=== PATIENT | female | born 1995 | race Caucasian/White ===

== ENCOUNTER → 2022-08-23 10:16 | Outpatient (CLI) | payer OTHER, SELFPAY ==
[2022-08-23 11:30] LABS: Add Manual Diff / Slide Review NO; Basophils Absolute Auto 0 /uL (0-100); Basophils Percent Auto 0.2 % (0-2); Eosinophils Absolute Auto 200 /uL (0-450); Eosinophils Percent Auto 1.9 % (2-4); Hematocrit 39.3 % (36-46); Hemoglobin 13.4 g/dL (12.0-16.0); Lymphocytes Absolute Auto 2000 /uL (1100-4500); Lymphocytes Percent Auto 23.1 % (25-40); Mean Corpuscular HGB Conc 34.1 % (30-36); Mean Corpuscular Hemoglobin 29.5 PG (26-34); Mean Corpuscular Volume 86.5 fL (80-100); Monocytes Absolute Auto 500 /uL (0-900); Monocytes Percent Auto 6.2 % (3-14); Neutrophils Absolute Auto 6100 /uL (1500-7000); Neutrophils Percent Auto 68.6 % (50-75); Platelet Count 224 X10^3/uL (150-400); Red Blood Cell Count 4.55 X10^6/uL (4.0-5.2); Red Cell Distribution Width 12.8 % (11.6-14.8); White Blood Cell Count 8.9 X10^3/uL (4.5-11.0)
[2022-08-23 13:17] LABS: Appearance Urine UA SL CLOUDY; Bilirubin Urine UA NEGATIVE (NEGATIVE); Color Urine UA YELLOW; Glucose Urine UA NEGATIVE (Negative); Ketones Urine UA NEGATIVE (NEGATIVE); Leukocyte Esterase Urine UA 1+ (NEGATIVE); Nitrite Urine UA NEGATIVE (Negative); Occult Blood Urine UA NEGATIVE (Negative); Protein Urine UA NEGATIVE (Negative); Specific Gravity Urine UA 1.015 (1.000-1.035); Urobilinogen Urine UA 0.2 E.U./dL (0.2)
[2022-08-23 13:20] LABS: pH Urine UA 7.5 (4.5-8.0)
[2022-08-23 13:37] LABS: RBC Urine None Seen (0-5/HPF); Squamous Epithelial Cell Urine 5-10 /HPF (0-5/HPF); WBC Urine 1-5/HPF (0-5/HPF)
[2022-08-23 13:38] LABS: Bacteria Urine None Seen; Culture Indicated Urine Cult Not Indicated
[2022-08-24 08:20] LABS: RPR Screen Non Reactive (Non Reactive); Varicella IgG Antibody 1400 index (Immune >165)
[2022-08-24 15:52] LABS: Hepatitis B Surface Antigen NEGATIVE s/c (NEGATIVE); Rubella Antibody IgG 30.8 IU/mL (>15)
[2022-08-24 16:13] LABS: HIV 1 & 2 Ab/Ag 4th Gen Combo NEGATIVE (NEGATIVE); Hep C Virus Ab w/Reflex Quant NEGATIVE s/c (NEGATIVE)
== END ==
PROVIDERS: Referring Provider Family Medicine; Visit Provider Family Medicine
DX: Z34.81 Encounter for supervision of other normal pregnancy, first trimester (principal)
CPT/HCPCS: 36415; 80055; 81003; 81015; 86787; 86803; 86850; 86900; 86901; 87086; 87389

== ENCOUNTER → 2022-10-02 09:08 | Outpatient (CLI) | payer OTHER, SELFPAY ==
[2022-10-02 11:25] LABS: GTT (PREG) 1 Hour PP 50gm Dose 130 mg/dL (76-139)
== END ==
PROVIDERS: Referring Provider Family Medicine; Visit Provider Family Medicine
DX: Z34.82 Encounter for supervision of other normal pregnancy, second trimester (principal); Z3A.17 17 weeks gestation of pregnancy
CPT/HCPCS: 36415; 82950

== ENCOUNTER → 2022-10-20 10:15 | Outpatient (CLI) | payer OTHER, SELFPAY ==
--- NOTE | 2022-10-20 10:16 | DI.US.S_ITS ---
PROCEDURE: US OB >= 14 WEEKS FETUS INDICATIONS: anatomy screening OUTSIDE/PRIOR DATING DATA: Last menstrual period (LMP): 05/31/2022. LMP-based estimated date of delivery (JOSE): 03/07/2023. First dating scan (date and location): Today's exam. Estimated date of delivery (JOSE) from first dating scan: 03/04/2023. The calculations are made using the clinical JOSE of 03/07/2023. TECHNIQUE: Real-time scanning was performed of the fetus, with image documentation and biometric measurements. Endovaginal scanning: Not performed COMPARISON: None. FINDINGS: General: A single living intrauterine gestation is present. Presentation: Transverse. Placenta: Placental position is posterior , without previa. Amniotic fluid index: 13.9 cm, normal range is 5-24 cm. Single deepest vertical pocket is 4.0 cm. heart rate: 147 beats per minute. Maternal cervical canal: 4.6 cm long. Normal lower limit is 2.5 cm. biometrics: Biparietal diameter: 4.7 cm, 20 weeks 2 days Head circumference: 17.7 cm, 20 weeks 1 day Abdominal circumference: 15.7 cm, 20 weeks 6 days Femur length: 3.6 cm, 21 weeks 2 days Clinically estimated gestational age: 20 weeks 2 days Composite gestational age from present scan: 20 weeks 5 days Estimated weight and percentile: 389 g, 81st percentile Anatomic survey: Neuro: Ventricles are non-dilated at less than 10 mm. Cisterna magna is normal at 3-11 mm. Cerebellum is normal in size and morphology. Nuchal skin fold: Normal at less than 6 mm between 14-21 weeks gestational age. Face: Nose and lips, facial profile are normal. Spine: No evidence for spina bifida. Heart: 4-chambered heart is present, with normal ventricular outflow tracts. Diaphragm: Diaphragm is intact. Stomach: Left-sided stomach is present. Kidneys: No hydronephrosis. Normal is less than 5 mm in 2nd trimester, less than 7 mm in 3rd trimester. Cord: 3-vessel cord has orthotopic insertion. Bladder: Normal in size. Extremities: All 4 extremities identified. IMPRESSION: Single living intrauterine at 20 weeks 2 days, JOSE of 03/07/2023. Normal anatomy survey. Estimated weight of 389 g, 81st percentile. We strive to produce accurate, complete, and clear reports of imaging services. To assist us in improving patient care, this report was composed using standard report templates and voice recognition software. Therefore, it may contain abnormal punctuation, insertions and/or omissions. Occasional wrong-word or sound-alike substitutions may occur. Though we review the report and make efforts to correct it, we do recommend that the report be read carefully in proper context to recognize any text inaccuracies. Dictated by: Kishor Duran M.D. on 10/20/2022 at 13:27 Approved by: Kishor Duran M.D. on 10/20/2022 at 13:30
== END ==
PROVIDERS: Referring Provider Family Medicine; Visit Provider Family Medicine
DX: Z34.92 Encounter for supervision of normal pregnancy, unspecified, second trimester (principal); Z3A.20 20 weeks gestation of pregnancy
CPT/HCPCS: 76811

== ENCOUNTER → 2022-12-08 12:28 | Outpatient (CLI) | payer OTHER, SELFPAY ==
[2022-12-08 13:58] LABS: Add Manual Diff / Slide Review NO; Basophils Absolute Auto 100 /uL (0-100); Basophils Percent Auto 0.8 % (0-2); Eosinophils Absolute Auto 300 /uL (0-450); Eosinophils Percent Auto 2.6 % (2-4); Hematocrit 37.9 % (36-46); Hemoglobin 12.9 g/dL (12.0-16.0); Lymphocytes Absolute Auto 2200 /uL (1100-4500); Lymphocytes Percent Auto 17.3 % (25-40); Mean Corpuscular Hemoglobin 29.8 PG (26-34); Mean Corpuscular Volume 87.6 fL (80-100); Monocytes Absolute Auto 700 /uL (0-900); Monocytes Percent Auto 5.1 % (3-14); Neutrophils Absolute Auto 9500 /uL (1500-7000); Neutrophils Percent Auto 74.2 % (50-75); Platelet Count 216 X10^3/uL (150-400); Red Blood Cell Count 4.33 X10^6/uL (4.0-5.2); Red Cell Distribution Width 13.2 % (11.6-14.8); White Blood Cell Count 12.8 X10^3/uL (4.5-11.0)
[2022-12-08 14:46] LABS: Alanine Aminotransferase 19 IU/L (<35); Albumin 3.6 g/dL (3.5-5.0); Albumin Globulin Ratio 1.1 (1.0-2.8); Alkaline Phosphatase 75 U/L (38-126); Aspartate Aminotransferase 29 IU/L (14-36); BUN Creatinine Ratio 17.9 (6-22); Bilirubin Total 0.3 mg/dL (0.2-1.3); Blood Urea Nitrogen 7 mg/dL (7-17); Calcium 9.3 mg/dL (8.4-10.2); Carbon Dioxide 23 mmol/L (22-32); Chloride 103 mmol/L (98-107); Estimated Glomerular Filt Rate > 60 mL/min (>60); GTT (PREG) 1 Hour PP 50gm Dose 134 mg/dL (76-139); Globulin 3.3 g/dL (1.7-4.1); Glucose 134 mg/dL (70-100); HEMOLYSIS 67 (0-50); Potassium 3.7 mmol/L (3.4-5.1); Sodium 135 mmol/L (137-145); Total Protein 6.9 g/dL (6.3-8.2)
[2022-12-08 17:16] LABS: Creatinine Urine Random 41.9 mg/dL; Protein (Total) Urine Random 14 mg/dL (0-12); Protein Creatinine Ratio Urine 0.33 GRAM/24H
== END ==
PROVIDERS: Referring Provider Family Medicine; Visit Provider Family Medicine
DX: Z34.82 Encounter for supervision of other normal pregnancy, second trimester (principal); Z3A.26 26 weeks gestation of pregnancy
CPT/HCPCS: 36415; 80053; 82570; 82950; 84156; 85025

== ENCOUNTER → 2022-12-12 15:17 | Outpatient (CLI) | payer OTHER, SELFPAY | PROVIDERS: Referring Provider Family Medicine; Visit Provider Family Medicine | DX: Z34.81 Encounter for supervision of other normal pregnancy, first trimester (principal) | CPT/HCPCS: 36415; 86850 ==

== ENCOUNTER → 2022-12-14 12:56 | Outpatient (CLI) | payer OTHER, SELFPAY ==
[2022-12-14 16:44] LABS: Collection Time Urine 24 Hours; Protein (Total) Urine Random 12 mg/dL (0-12); Total Protein 24 Hour Urine 138 mg/day (42-225); Total Volume Urine 1150 mL
== END ==
PROVIDERS: Referring Provider Family Medicine; Visit Provider Family Medicine
DX: Z34.90 Encounter for supervision of normal pregnancy, unspecified, unspecified trimester (principal); R80.9 Proteinuria, unspecified
CPT/HCPCS: 84156

== ENCOUNTER → 2023-02-06 10:38 | Outpatient (CLI) | payer OTHER, SELFPAY ==
[2023-02-07 14:32] LABS: Strep Grp B PCR NEG for Grp B Strep
== END ==
PROVIDERS: Visit Provider Family Medicine
DX: Z34.81 Encounter for supervision of other normal pregnancy, first trimester (principal)
CPT/HCPCS: 87653

== ENCOUNTER 2023-03-05 20:30 | Observation (INO) | payer OTHER, SELFPAY ==
[2023-03-05 22:10] LABS: Add Manual Diff / Slide Review NO; Basophils Absolute Auto 100 /uL (0-100); Basophils Percent Auto 0.6 % (0-2); Eosinophils Absolute Auto 300 /uL (0-450); Eosinophils Percent Auto 2.4 % (2-4); Hematocrit 33.9 % (36-46); Hemoglobin 11.8 g/dL (12.0-16.0); Lymphocytes Absolute Auto 2400 /uL (1100-4500); Lymphocytes Percent Auto 23.5 % (25-40); Mean Corpuscular HGB Conc 34.8 % (30-36); Mean Corpuscular Hemoglobin 29.2 PG (26-34); Monocytes Absolute Auto 700 /uL (0-900); Monocytes Percent Auto 6.9 % (3-14); Neutrophils Absolute Auto 6800 /uL (1500-7000); Neutrophils Percent Auto 66.6 % (50-75); Platelet Count 225 X10^3/uL (150-400); Red Blood Cell Count 4.04 X10^6/uL (4.0-5.2); White Blood Cell Count 10.2 X10^3/uL (4.5-11.0)
[2023-03-05] MEDS: hydrOXYzine 50 MG/ML INJ IM (22:14)
[2023-03-05] MEDS: MORPHINE 10 MG/ML INJ IM (22:14)
[2023-03-05 22:54] LABS: Creatinine Urine Random 42.6 mg/dL; Protein (Total) Urine Random 19 mg/dL (0-12); Protein Creatinine Ratio Urine 0.44 GRAM/24H
== END 2023-03-05 22:10 | disposition home or self-care (01) ==
PROVIDERS: Admitting Provider Family Medicine; Referring Provider Family Medicine; Visit Provider Family Medicine
DX: O47.1 False labor at or after 37 completed weeks of gestation (principal); Z3A.39 39 weeks gestation of pregnancy
CPT/HCPCS: 82570; 84156; 85025; G0378; G0379; J2270; J3410

== ENCOUNTER 2023-03-07 07:28 | Inpatient (IN) | payer OTHER, SELFPAY ==
[2023-03-07] MEDS: LACTATED RINGERS 1,000 ML 100 ML IV (08:30)
[2023-03-07 08:50] LABS: Add Manual Diff / Slide Review NO; Basophils Absolute Auto 0 /uL (0-100); Basophils Percent Auto 0.2 % (0-2); Eosinophils Absolute Auto 200 /uL (0-450); Eosinophils Percent Auto 1.8 % (2-4); Hematocrit 35.3 % (36-46); Hemoglobin 12.3 g/dL (12.0-16.0); Lymphocytes Absolute Auto 1600 /uL (1100-4500); Lymphocytes Percent Auto 16.8 % (25-40); Mean Corpuscular HGB Conc 34.8 % (30-36); Mean Corpuscular Hemoglobin 29.5 PG (26-34); Mean Corpuscular Volume 84.7 fL (80-100); Monocytes Absolute Auto 500 /uL (0-900); Monocytes Percent Auto 5.1 % (3-14); Neutrophils Absolute Auto 7200 /uL (1500-7000); Neutrophils Percent Auto 76.1 % (50-75); Platelet Count 217 X10^3/uL (150-400); Red Blood Cell Count 4.16 X10^6/uL (4.0-5.2); Red Cell Distribution Width 13.2 % (11.6-14.8); White Blood Cell Count 9.5 X10^3/uL (4.5-11.0)
[2023-03-07] MEDS: OXYTOCIN PREMIX 30 UNIT/500 ML PLAST..BAG IV (09:03)
[2023-03-07 09:12] LABS: Alanine Aminotransferase 15 IU/L (<35); Albumin 3.4 g/dL (3.5-5.0); Alkaline Phosphatase 123 U/L (38-126); Aspartate Aminotransferase 19 IU/L (14-36); Bilirubin Total 0.2 mg/dL (0.2-1.3); Blood Urea Nitrogen 8 mg/dL (7-17); Calcium 9.1 mg/dL (8.4-10.2); Carbon Dioxide 21 mmol/L (22-32); Chloride 105 mmol/L (98-107); Estimated Glomerular Filt Rate > 60 mL/min (>60); Globulin 3.3 g/dL (1.7-4.1); Glucose 112 mg/dL (70-100); HEMOLYSIS < 15 (0-50); Potassium 3.5 mmol/L (3.4-5.1); Sodium 135 mmol/L (137-145); Total Protein 6.7 g/dL (6.3-8.2)
--- NOTE | 2023-03-07 09:49 | PM.OBHP.IH.1 ---
OB HPI Date/Time Date of admission: 03/07/23 Date Patient Seen: 03/07/23 Time Patient Seen: 08:30 History of Present Condition Chief complaint: INDUCTION JOSE Calculator Estimated Delivery Date Method Current WG Current Estimate 03/07/23 LMP (Certain) 40w 0d Other Estimates 03/09/23 Ultrasound #1 39w 5d Estimated Gestational Age (weeks): 40w0d : 2 Para: 1 Narrative: Pt is a 27yo at 40w0d here for IOL for pre-eclampsia without severe symptoms. The pt denies any current headache, vision changes, RUQ pain, acutely worsening swelling. She denies any contractions. She has had minimal spotting. No LOF. She is feeling her baby move regularly. The pts was uncomplicated, until she was noted to have elevated BPs in triage 2 days prior to induction. Labs revealed elevated protein/creatinine ratio, for the diagnosis of pre-eclampsia. She has remained asymptomatic. The pt did have a hx of gestational hypertension, but declined aspirin. care: good care, initiated at week # and pounds weight gain Dating criteria OB: LMP confirmed by 1st trimester US Ultrasounds: normal 1st trimester US and normal mid trimester US Obstetrical complications: preeclampsia Medical complications OB: none Indications Indication for induction OB: gestational HTN/pre-eclampsia Preadmission Labs Last OB Lab Results: Blood Type A Negative 03/07/23 08:40 Antibody Screen Negative 03/07/23 08:40 Hematocrit 35.3 % (36-46) L 03/07/23 08:40 Hemoglobin 12.3 g/dL (12.0-16.0) 03/07/23 08:40 Hepatitis B Surface Antigen Negative s/c (NEGATIVE) 08/23/22 10:30 Hepatitis C Antibody Negative s/c (NEGATIVE) 08/23/22 10:30 Rubella Antibody 30.8 IU/mL (>15) 08/23/22 10:30 Varicella-Zoster IgG Antibody 1400 index (Immune >165) 08/23/22 10:30 Glucose 1 Hour 134 mg/dL (76-139) 12/08/22 13:52 Group B Streptococcus (PCR) Neg for grp b strep 02/06/23 10:38 -: Chlamydia screen: negative, Gonorrhea screen: negative and Urine: negative External Labs -: Urine: negative Prior (ies) Past Pregnancies Del. Date GA/Weeks Labor Lgth Wt Sex Route Outcome Anesthesia Place Delv Breastfeed Preg Comp Name 05/16/19 39 12 7 lb 13 oz Male vaginal vacuum live - full term [facility] attempted induced hyper- gestational diabetes [place] Evaluation Evaluation Baseline heart rate: 150 Variability: Moderate (11-25) monitor accelerations: Present Monitor Decelerations: Absent Status: Category l Dilation (cm): 4 Effacement (%): 80 Dilation: 3-4 cm Effacement: >/=80% station: -1 Position of cervix: mid Consistency: soft Aleman score: 10 [facility] Medical History (Updated 07/13/22 @ 10:30 by Nicole Jaimes RN) Gestational diabetes Gestational hypertension Surgical History (Updated 07/13/22 @ 10:30 by Nicole Jaimes RN) [place] teeth extracted Family History (Updated 08/11/22 @ 14:40 by Corina Portillo MD) Grandfather Pancreatic cancer Diabetes mellitus Mother History of hysterectomy Endometrial cancer Social History marital status: unmarried,single number of children: 1 household members: children lives independently: Yes caregiver/support person: Yes housing: [facility] pets and animals: No education level: high school occupational status: employed current occupational exposures/hazards: Yes (counseled ) special reece needs: No travel history: over 6 months ago seatbelt use: always helmet use: Yes water heater temp set < 120 deg: Yes working smoke detector in home: Yes fire extinguisher in home: Yes carbon monox detector in home: Yes firearms in home: Yes do you feel safe at home: Yes Smoking Status: Never smoker second hand exposure: No alcohol intake: former substance use type: does not use during the past year weight has: remained stable well-balanced diet: about half the time daily servings fruits/ve-4 caffeine: Yes (2 shots/day espresso) Type(s) of exercise: walking, bicycling and resistance training frequency: daily duration: 30-45 minutes/day Meds Home Medications and Allergies Home Medications Medication Instructions Recorded Confirmed Type prenat.vits,mayra,dth-sitf-fxfqr 1 tab PO DAILY 07/13/22 03/06/23 History Allergies Allergy/AdvReac Type Severity Reaction Status Date / Time No Known Drug Allergies Allergy Unverified 03/06/23 09:19 OB Exam Resp Effort & Inspection: normal respiratory effort Auscultation: clear to auscultation bilaterally Cardio Rate: regular rate Rhythm: regular rhythm Heart Sounds: S1 normal, S2 normal and no murmurs GI Inspection: non-distended Palpation: Yes soft and No tender Presentation: vertex Other: no clonus Objective Labs 03/07/23 08:40 03/07/23 08:40 Labs: Laboratory Results - last 24 hr 03/07/23 08:40 WBC 9.5 RBC 4.16 Hgb 12.3 Hct 35.3 L MCV 84.7 MCH 29.5 MCHC 34.8 RDW 13.2 Plt Count 217 Neut % (Auto) 76.1 H Lymph % (Auto) 16.8 L [place] % (Auto) 5.1 Eos % (Auto) 1.8 L Baso % (Auto) 0.2 Neut # (Auto) 7200 H Lymph # (Auto) 1600 [place] # (Auto) 500 Eos # (Auto) 200 Baso # (Auto) 0 Sodium 135 L Potassium 3.5 Chloride 105 Carbon Dioxide 21 L BUN 8 Creatinine 0.47 L Estimated GFR > 60 BUN/Creatinine Ratio 17.0 Glucose 112 H Calcium 9.1 Total Bilirubin 0.2 AST 19 ALT 15 Alkaline Phosphatase 123 Total Protein 6.7 Albumin 3.4 L Globulin 3.3 Albumin/Globulin Ratio 1.0 Assessment and Plan Assessment and Plan Assessment and Plan narrative: 27yo at 40w0d here for IOL due to preeclampsia without severe features. No evidence of HELLP on labs. GBS negative, Rh negative. Aleman score currently 10. After informed consent, AROM performed with scant clear fluid produced. - Start pitocin, titrate as tolerated - FHT reassuring - GBS negative, no prophylaxis indicated - Epidural when desired - Monitor BPs closely
[2023-03-07 10:33] VITALS: BP 128/62
[2023-03-07] MEDS: FENT 2MCG/ML BUPIV 0.1% EPI 200 MCG/100 ML PLAST..BAG 6 MCG EPIDURAL (12:15)
--- NOTE | 2023-03-07 14:39 | P.PCNOB_ITS ---
Events: Pre-Eclampsia Labor & Delivery Delivery date: 03/07/23 Cervical ripening method: none Induction method: AROM Delivery augmentation: pitocin Delivery monitor: external FHT and external uterine Route of delivery: Episiotomy description: None L&D Laceration Description: Perineal - 2nd Degree Quantitative Blood Loss: 200 Anesthesia Type: Epidural Complications: None Narrative: PROCEDURE: at 40w0d presented for IOL for pre-eclampsia and was admitted to Labor and Delivery. The patient progressed through the 1st stage over 2 hours. ROM occured at 8:43 with clear fluid. Pain was controlled with an epidural. The patient progressed through the 2nd stage over 1 hour and delivered a viable male infant with APGARs 8/9 at 13:50 via without complications. Nuchal cord x1 was reduced at the perineum. The cord was cut and clamped after it stopped pulsating. The placenta delivered with gentle cord traction, and appeared complete. The perineum and vagina were inspected with 2nd degree perineal laceration repaired with 3-O Chromic. Needle and sponge counts were correct.? The vagina was inspected and no items were left in situ. Alicja was doing well with Sonido, her and Eduardo, her , at bedside. PREPROCEDURE DIAGNOSIS: Intrauterine at 40w0d Pre-eclampsia without severe features GBS negative RH negative POSTPROCEDURE DIAGNOSIS: Intrauterine at 40w0d, delivered Same as preprocedure [place] Baby 1: gender: Male Presentation: vertex Position: Left Occiput Anterior Placenta delivery description: Spontaneous Cord Vessel Description: 3 Vessels and Nuchal Cord score (1 min): 8 score (5 min): 9 weight: 7 lb 1.512 oz Plan for aftercare: Routine care
[2023-03-07 14:46] VITALS: BP 116/71; PULSE 85; RESP 16; TEMP 37.2
[2023-03-07] MEDS: ACETAMINOPHEN 325 MG TABLET 650 MG PO ×2 (16:06→21:59)
[2023-03-07] MEDS: IBUPROFEN 600 MG TABLET PO ×2 (16:06→21:59)
--- NOTE | 2023-03-07 16:23 | PM.ANES.PR ---
Operative Date/Time/Diagnoses Date of procedure: 03/07/23 Time of procedure: 12:10 Pre-op diagnosis: labor pain Post-op diagnosis: same Note patient is a requesting labor epidural
--- NOTE | 2023-03-07 16:24 | PM.AN.REGBLK ---
Regional Block Pre-procedure Procedure: Continuous Lumbar Epidural for L&D Attending OB provider: Evan Melendrez PMH/ROS narrative: patient is a requesting labor epidural Hx: No personal or family history of anesthesia problems. Exam narrative: Mallampati:2, good neck ROM, T.M. > 3 cm ASA Class: II Labs: Hct 35.3 % (36-46) L 03/07/23 08:40 Plt Count 217 X10^3/uL (150-400) 03/07/23 08:40 Medications: Current Medications Generic Name Dose Route Start Last Admin Trade Name Freq PRN Reason Stop Dose Admin Acetaminophen 650 mg 03/07/23 14:46 03/07/23 16:06 Acetaminophen 325 Mg Tablet PO 650 mg Q6HR PRN Administration Pain, Mild (1-3) Benzocaine 1 spray 03/07/23 14:46 Dermoplast [place] 20% 60 Ml TOP Q1HR PRN perineal pain Carboprost Tromethamine 250 mcg 03/07/23 14:46 Carboprost 250 Mcg/Ml Ampul IM Q90MIN PRN Bleeding Diphenhydramine HCl 25 mg 03/07/23 14:56 Diphenhydramine 50 Mg/Ml Vial IV Q10M PRN Pruritis Docusate Sodium 100 mg 03/08/23 09:00 Docusate 100 Mg Capsule PO DAILY [facility] Emollient Ointment 1 applic 03/07/23 14:46 Lanolin Oint 7 Gm TOP PRN PRN Tenderness Tranexamic Acid 1,000 mg/ 100 mls @ 200 mls/hr 03/07/23 14:46 Sodium Chloride IV NOW PRN Bleeding Oxytocin/Lactated Ringer's 30 unit in 500 mls @ 200 mls/hr 03/07/23 14:46 Oxytocin Premix IV CONT PRN Bleeding Protocol FENT 2MCG/ML BUPIV 0.1% EPI 200 mcg in 100 mls @ 6 mls/hr 03/07/23 15:00 Fentanyl/Bupiv/Ns 2mcg/Ml - 0.1% EPIDURAL CONT VERONICA Ibuprofen 600 mg 03/07/23 14:46 03/07/23 16:06 Ibuprofen 600 Mg Tablet PO 600 mg Q6HR PRN Administration Pain, Mild (1-3) Methylergonovine Maleate 0.2 mg 03/07/23 14:46 Methylergonovine 0.2 Mg/Ml Vial IM NOW PRN Bleeding Methylergonovine Maleate 0.2 mg 03/07/23 14:46 Methylergonovine 0.2 Mg Tablet PO Q6HR PRN Heavy bleeding Misoprostol 400 mcg 03/07/23 14:46 Misoprostol 200 Mcg Tablet SL NOW PRN Bleeding Misoprostol 1,000 mcg 03/07/23 14:46 Misoprostol 200 Mcg Tablet AK NOW PRN Bleeding Misoprostol 800 mcg 03/07/23 14:46 Misoprostol 200 Mcg Tablet AK NOW PRN Bleeding Nalbuphine HCl 2.5 mg 03/07/23 14:56 Nalbuphine 20 Mg/Ml Ampul IV Q10M PRN Pruritis Naloxone HCl 0.2 mg 03/07/23 14:46 Naloxone 0.4 Mg/Ml Vial IV Q2MIN PRN Opiate Reversal Oxycodone HCl 5 mg 03/07/23 14:46 Oxycodone Ir 5 Mg Tablet PO Q4HR PRN Pain, Moderate (4-6) Oxytocin 10 unit 03/07/23 14:46 Oxytocin 10 Unit/Ml Vial IM NOW PRN Bleeding Vit/Calcium/Iron/Folic Ac 1 tab 03/08/23 09:00 Vit,Calc/Iron/Folic 1 Tablet PO DAILY VERONICA Rho Immune Globulin 1,500 unit 03/07/23 14:46 Rho(D) Immune Globulin 1,500 Unit Syringe IM NOW PRN Mom Rh neg, Infant Rh pos Allergies: Allergies Allergy/AdvReac Type Severity Reaction Status Date / Time No Known Drug Allergies Allergy Unverified 03/06/23 09:19 Procedure Insertion date: 03/07/23 Insertion time: 12:10 Prep/Local: 1% lidocaine (prep with Chloroprep) Interspace: L4-5 Patient position: sitting Needle: 18 gauge Manuel Loss of resistance with: saline EVELYN at (cm): 5 Catheter placed at SKIN (cm): 10 Catheter in SPACE (cm): 5 Sensory level: T10 Insertion: No CSF, No Blood, No Paresthesia with insertion, No Paresthesia with injection and No Test dose reaction Initial Medications TEST DOSE time: 12:12 TEST DOSE: 1.5% lidocaine with epinephrine 1:200k (mL): 5 BOLUS DOSE time: 12:14 BOLUS DOSE (mL): 5 BOLUS DOSE med: other (2% Lidocaine) Infusion INFUSION: 0.125% bupivacaine and with fentanyl 2 mcg/mL Initial rate (mL/hr): 10 Post-procedure Anesthesia time START: 12:10 Anesthesia time END: 13:50 Post-procedure Anesthesia Assessment: Yes CV function: HR/BP stable, Yes Resp function: RR/sat/airway adequate, Yes Post-op hydration adequate, Yes Pain control adequate, Yes Nausea & vomiting absent, Yes Temperature > 36 C and Yes Mental status appropriate
[2023-03-08] MEDS: ACETAMINOPHEN 325 MG TABLET 650 MG PO (06:01)
[2023-03-08] MEDS: IBUPROFEN 600 MG TABLET PO (06:02)
[2023-03-08] MEDS: DOCUSATE 100 MG CAPSULE PO (09:15)
[2023-03-08] MEDS: PRENATAL VIT,CALC/IRON/FOLIC 1 TABLET 1 TAB PO (09:15)
--- NOTE | 2023-03-08 10:05 | P.DS_ITS ---
Discharge Providers Provider Date of admission: 03/07/23 07:28 Discharge Date: 03/08/23 Primary care physician: Queenie Gayle DO Consults: 03/08/23 14:38 Consult to Sales Service Promoter Routine Comment: Discharge provider: Corina Portillo MD Summary Hospital Course Date Patient Seen: 03/08/23 Time Patient Seen: 10:05 Diagnoses: Intrauterine at 40w0d Pre-eclampsia without severe features GBS negative RH negative Spontaneous vaginal delivery Hospital Course: The pt presented for IOL for pre-eclampsia. AROM was performed. She began having regular painful contractions. She received an epidural for pain control. Pitocin was initiated due to spacing of contractions. She progressed to complete and had an of a viable baby boy without complications. A 2nd degree perineal laceration was then repaired. , there were no complications. At the time of discharge she was voiding, ambulating, and passing flatus without difficulty. Her lochia was decreasing appropriately. Her pain was well controlled. She was and formula supplementing as well. She will f/u in 6 weeks for check. She is undecided regarding contraception. Peripartum Data Infant Delivery Method: Natural Vaginal Laceration Description: Perineal - 2nd Degree Episiotomy description: None Procedures: Spontaneous vaginal delivery complications: none [place] 1: Gender: Male Status at Discharge Cognitive/behavioral status at discharge: oriented Functional status at discharge: independent ambulation Overall status at discharge: patient is progressing back to baseline Time Spent with Patient Time attestation: Total time spent providing and/or coordinating discharge services: Objective Labs 03/07/23 08:40 03/07/23 08:40 Labs: Laboratory Results - last 24 hr 03/07/23 08:40 Blood Type A Negative Antibody Screen Negative Exam Narrative Exam Narrative: Gen: NAD, sitting comfortably in bed, appears well CV: RRR, no murmurs Resp: clear to auscultation bilaterally Abd: soft, appropriately tender, fundus firm and below the umbilicus, nondistended Ext: no edema Discharge Plan Discharge Plan Patient Disposition: Home Discharge orders & Medications Prescriptions: New acetaminophen 325 mg Tablet 650 mg PO Q6HR PRN (Reason: Pain, Mild (1-3)) Qty: 30 0RF docusate sodium 100 mg Capsule 100 mg PO DAILY Qty: 30 0RF ibuprofen 600 mg Tablet 600 mg PO Q6HR PRN (Reason: Pain, Mild (1-3)) Qty: 30 0RF Continued prenat.vits,mayra,iqj-isdj-dnuna Tablet 1 tab PO DAILY Follow up/Referrals: Queenie Gayle DO [Primary Care Provider] - Corina Portillo MD [Physician] - 6 Weeks Diet/Activity/Treatments Diet: Diet as Tolerated and Regular Skin/Wound/Dressing Care Report to your healthcare provider any signs of infection, such as:: chills, fever, increased pain and unusual drainage Visit Report/Discharge Packet Instructions: DI for Labor and Delivery, Vaginal Stand Alone Forms: Patient Portal/API, Stroke Signs & Symptoms Discharge Data Primary Care Provider: Queenie Gayle
== END 2023-03-08 12:46 | disposition home or self-care (01) | DRG 807 ==
PROVIDERS: Admitting Provider Family Medicine; Referring Provider Family Medicine; Visit Provider Family Medicine
DX: O14.04 Mild to moderate pre-eclampsia, complicating childbirth (principal); Z37.0 Single live birth; O70.1 Second degree perineal laceration during delivery; Z3A.40 40 weeks gestation of pregnancy
CPT/HCPCS: 36415; 59050; 59400; 80053; 85025; 86850; 86900; 86901; G0379; J2590

== ENCOUNTER → 2023-06-11 14:38 | Outpatient (CLI) | payer OTHER, SELFPAY ==
--- NOTE | 2023-06-11 14:39 | DI.US.S_ITS ---
PROCEDURE: US OB <= 14 WEEKS FETUS INDICATIONS: DATES OUTSIDE/PRIOR DATING DATA: Last menstrual period (LMP): Unknown LMP-based estimated date of delivery (JOSE): Unknown First dating scan (date and location): 06/11/2023 Estimated date of delivery (JOSE) from first dating scan: 02/04/2024 TECHNIQUE: Real-time scanning was performed of the fetus, with image documentation and biometric measurements. Endovaginal scanning: Performed COMPARISON: None. FINDINGS: General: A single intrauterine gestational sac is seen with yolk sac seen. No pole or cardiac activity is detected at this time. Mean gestational sac diameter is 1.2 cm with estimated gestational age of 6 weeks, 0 day. There is suggestion of small subchorionic hematoma measures 1.5 x 0.3 x 1.3 cm in size. Bilateral ovaries are visualized and are within normal limits. Complex appearing corpus luteum in right ovary is noted. IMPRESSION: 1. Single intrauterine gestational sac with yolk sac seen. No pole or cardiac activity is detected. Please correlate with serial beta hCG levels and follow-up ultrasound for evaluation of viability. 2. Small subchorionic hematoma as above. 3. Small complex appearing corpus luteum in right ovary. No adnexal mass is seen. We strive to produce accurate, complete, and clear reports of imaging services. To assist us in improving patient care, this report was composed using standard report templates and voice recognition software. Therefore, it may contain abnormal punctuation, insertions and/or omissions. Occasional wrong-word or sound-alike substitutions may occur. Though we review the report and make efforts to correct it, we do recommend that the report be read carefully in proper context to recognize any text inaccuracies. Dictated by: Mike Waterman M.D. on 06/11/2023 at 16:50 Approved by: Mike Waterman M.D. on 06/11/2023 at 16:53
== END ==
LOC: US 14:39
PROVIDERS: Referring Provider Family Medicine; Visit Provider Family Medicine
DX: O36.80X0 Pregnancy with inconclusive fetal viability, not applicable or unspecified (principal)
CPT/HCPCS: 76801; 76817

== ENCOUNTER → 2023-06-12 13:06 | Outpatient (CLI) | payer OTHER, SELFPAY ==
[2023-06-12 15:23] LABS: HCG Quantitative /Beta subunit 18409 mIU/mL
[2023-06-12 16:02] LABS: Urine N gonorrhoeae NOT DETECTED
[2023-06-12 16:05] LABS: Urine Chlamydia NOT DETECTED
== END ==
PROVIDERS: Referring Provider Family Medicine; Visit Provider Family Medicine
DX: O09.299 Supervision of pregnancy with other poor reproductive or obstetric history, unspecified trimester (principal)
CPT/HCPCS: 36415; 84702; 87491; 87591

== ENCOUNTER → 2023-06-14 16:19 | Outpatient (CLI) | payer OTHER, SELFPAY ==
[2023-06-14 18:04] LABS: HCG Quantitative /Beta subunit 28335 mIU/mL
== END ==
LOC: LAB 16:20
PROVIDERS: Referring Provider Family Medicine; Visit Provider Family Medicine
DX: Z34.90 Encounter for supervision of normal pregnancy, unspecified, unspecified trimester (principal)
CPT/HCPCS: 36415; 84702

== ENCOUNTER → 2023-06-22 08:28 | Outpatient (CLI) | payer OTHER, SELFPAY ==
[2023-06-22 09:22] LABS: Add Manual Diff / Slide Review NO; Basophils Absolute Auto 0 /uL (0-100); Basophils Percent Auto 0.2 % (0-2); Eosinophils Absolute Auto 200 /uL (0-450); Eosinophils Percent Auto 2.2 % (2-4); Hematocrit 40.9 % (36-46); Hemoglobin 13.8 g/dL (12.0-16.0); Lymphocytes Absolute Auto 1300 /uL (1100-4500); Lymphocytes Percent Auto 17.6 % (25-40); Mean Corpuscular HGB Conc 33.7 % (30-36); Mean Corpuscular Hemoglobin 28.2 PG (26-34); Mean Corpuscular Volume 83.6 fL (80-100); Monocytes Absolute Auto 500 /uL (0-900); Monocytes Percent Auto 6.4 % (3-14); Neutrophils Absolute Auto 5300 /uL (1500-7000); Neutrophils Percent Auto 73.6 % (50-75); Platelet Count 230 X10^3/uL (150-400); Red Blood Cell Count 4.89 X10^6/uL (4.0-5.2); Red Cell Distribution Width 14.2 % (11.6-14.8); White Blood Cell Count 7.3 X10^3/uL (4.5-11.0)
[2023-06-22 09:23] LABS: Hemoglobin A1C% w Est Avg Glu 4.7 % (4.0-6.0)
[2023-06-22 09:44] LABS: Alanine Aminotransferase 42 IU/L (<35); Aspartate Aminotransferase 22 IU/L (14-36); BUN Creatinine Ratio 15.4 (6-22); Blood Urea Nitrogen 8 mg/dL (7-17); Estimated Glomerular Filt Rate > 60 mL/min (>60); Uric Acid 3.8 mg/dL (2.5-6.2)
[2023-06-22 10:26] LABS: Appearance Urine UA CLEAR; Bilirubin Urine UA NEGATIVE (NEGATIVE); Color Urine UA YELLOW; Glucose Urine UA NEGATIVE (Negative); Ketones Urine UA NEGATIVE (NEGATIVE); Leukocyte Esterase Urine UA TRACE (NEGATIVE); Nitrite Urine UA NEGATIVE (Negative); Occult Blood Urine UA NEGATIVE (Negative); Protein Urine UA NEGATIVE (Negative); Specific Gravity Urine UA 1.015 (1.000-1.035); Urobilinogen Urine UA 0.2 E.U./dL (0.2)
[2023-06-22 10:30] LABS: Hepatitis B Surface Antigen NEGATIVE s/c (NEGATIVE)
[2023-06-22 10:31] LABS: Creatinine Urine Random 90.5 mg/dL; Protein (Total) Urine Random 13 mg/dL (0-12); Protein Creatinine Ratio Urine 0.14 GRAM/24H
[2023-06-22 10:38] LABS: Amorphous Sediment Urine 1+; Bacteria Urine Moderate (10-30); RBC Urine None Seen (0-5/HPF); Squamous Epithelial Cell Urine 5-10 /HPF (0-5/HPF); Urine Volume 10mL (spun); WBC Urine 5-10/HPF (0-5/HPF)
[2023-06-22 10:47] LABS: HIV 1 & 2 Ab/Ag 4th Gen Combo NEGATIVE (NEGATIVE); Hep C Virus Ab w/Reflex Quant NEGATIVE s/c (NEGATIVE)
[2023-06-23 09:30] LABS: RPR Screen Non Reactive (Non Reactive); Varicella IgG Antibody 1334 index (Immune >165)
== END ==
PROVIDERS: Referring Provider Family Medicine; Visit Provider Family Medicine
DX: O09.299 Supervision of pregnancy with other poor reproductive or obstetric history, unspecified trimester (principal)
CPT/HCPCS: 36415; 80055; 81003; 81015; 82565; 82570; 83036; 84156; 84450; 84460; 84520; 84550; 86787; 86803; 86850; 86900; 86901; 87086; 87389

== ENCOUNTER → 2023-07-17 11:25 | Outpatient (CLI) | payer OTHER, SELFPAY ==
[2023-07-17 13:05] LABS: Alanine Aminotransferase 22 IU/L (<35); Albumin 3.8 g/dL (3.5-5.0); Albumin Globulin Ratio 1.2 (1.0-2.8); Alkaline Phosphatase 59 U/L (38-126); Aspartate Aminotransferase 20 IU/L (14-36); BUN Creatinine Ratio 16.7 (6-22); Bilirubin Total 0.5 mg/dL (0.2-1.3); Blood Urea Nitrogen 7 mg/dL (7-17); Calcium 9.1 mg/dL (8.4-10.2); Carbon Dioxide 20 mmol/L (22-32); Chloride 106 mmol/L (98-107); Estimated Glomerular Filt Rate > 60 mL/min (>60); Globulin 3.1 g/dL (1.7-4.1); Glucose 105 mg/dL (70-100); HEMOLYSIS < 15 (0-50); Potassium 3.5 mmol/L (3.4-5.1); Sodium 135 mmol/L (137-145); Total Protein 6.9 g/dL (6.3-8.2)
== END ==
PROVIDERS: Referring Provider Family Medicine; Visit Provider Family Medicine
DX: R74.8 Abnormal levels of other serum enzymes (principal)
CPT/HCPCS: 36415; 80053

== ENCOUNTER 2023-07-22 14:07 | Emergency (ER) | payer OTHER, SELFPAY ==
[2023-07-22 14:10] VITALS: BP 137/74; PULSE 83; RESP 18; TEMP 36.7; O2SAT 100; BMI 36.3
[2023-07-22 14:41] LABS: Appearance Urine UA CLOUDY; Color Urine UA ORANGE
[2023-07-22 14:42] LABS: Urine Volume 10mL (spun)
--- NOTE | 2023-07-22 14:45 | ED_ITS ---
<Statement entered by Koffi Cárdenas MD - 07/22/23 15:46> I was available for consultation during this patient's time in the ER but not consulted. My review of this chart is my first interaction with this patient's presentation. HPI - Female Genitourinary General Chief complaint: Urogenital-Female Stated complaint: UTI symptoms Time Seen by Provider: 07/22/23 14:38 History of Present Illness HPI Narrative: Patient is a 28-year-old female who is 11 weeks . She is also 4 months , but is not . She reports that she felt increased urgency of urination today. She denies any back pain abdominal pain or vaginal discharge. She denies any fever. She states that she felt little nauseated an hour ago but states this has subsided. She denies any pain with urination, but is concerned due to the increased frequency and urgency noted today. She denies any abnormal vaginal discharge or bleeding. She notes that she felt frequency and urgency to 3 days ago but it passed after a couple hours. She reports that she last had follow up with her rn gyn last week with no issues. She denies any chronic conditions which she is treated for nor any complications with her . She reports her next follow up is at the end of July. Related Data Home Medications Medication Instructions Recorded Confirmed prenat.vits,mayra,[id number] 1 tab PO DAILY 07/13/22 07/17/23 Previous Rx's Medication Instructions Recorded acetaminophen 325 mg tablet 650 mg (2 x 325 mg) PO Q6HR PRN 03/08/23 Pain, Mild (1-3) #30 tabs docusate sodium 100 mg capsule 100 mg PO DAILY #30 caps 03/08/23 ibuprofen 600 mg tablet 600 mg PO Q6HR PRN Pain, Mild 03/08/23 (1-3) #30 tabs amoxicillin 875 mg-potassium 1 tab PO BID 5 days #10 tabs 07/22/23 clavulanate 125 mg tablet Allergies Allergy/AdvReac Type Severity Reaction Status Date / Time No Known Drug Allergies Allergy Unverified 07/17/23 10:29 Review of Systems Review of Systems Narrative: See HPI Patient History Medical History (Updated 07/22/23 @ 14:59 by Meghann Chauhan PA-C) Preeclampsia Gestational diabetes Gestational hypertension Surgical History (Updated 07/13/22 @ 10:30 by Nicole Jaimes RN) [place] teeth extracted Family History (Updated 08/11/22 @ 14:40 by Corina Portillo MD) Grandfather Pancreatic cancer Diabetes mellitus Mother History of hysterectomy Endometrial cancer Substance Use Type: does not use Exam Initial Vital Signs Initial Vital Signs: Vital Signs Temperature 98.0 F 07/22/23 14:10 Pulse Rate 83 07/22/23 14:10 Respiratory Rate 18 07/22/23 14:10 Blood Pressure 137/74 07/22/23 14:10 Pulse Oximetry 100 07/22/23 14:10 Oxygen Delivery Method Room Air 07/22/23 14:10 GENERAL: 28 year old patient appears stated age. Well-developed patient, in no acute distress. HEAD: Atraumatic. Normocephalic. EYES: Pupils equal round CARDIOVASCULAR: Regular rate and rhythm without murmurs, gallops, or rubs. RESPIRATORY: Clear to auscultation. Breath sounds equal bilaterally. No wheezes, rales, or rhonchi. GASTROINTESTINAL: Abdomen soft, non-tender, nondistended. nontender over suprapubic area, no CVA tenderness BACK: Nontender without deformity or crepitance. No flank tenderness. NEURO: AOx3. SKIN: No rash or erythema of visible areas Course Orders Ordered: ED Orders 07/22/23 14:28 Urinalysis and Microscopic Stat 07/22/23 14:30 Ictotest Urine Stat Ondansetron HCl (Ondansetron 4 Mg/2 Ml Inj) 4 mg IV NOW PRN PRN Reason: Nausea And Vomiting Ondansetron HCl (Ondansetron 4 Mg Odt) 4 mg SL NOW PRN PRN Reason: Nausea And Vomiting Vital Signs Vital signs: Vital Signs - 8 hr 07/22/23 14:10 Temperature 98.0 F Pulse Rate 83 Respiratory Rate 18 Blood Pressure 137/74 Pulse Oximetry 100 Oxygen Delivery Method Room Air MDM - Female Genitourinary Lab Data Labs: Lab Results 07/22/23 07/22/23 Range/Units 14:28 14:30 Urine Color [place] Urine Appearance Cloudy Urine pH TNP Ur Specific [place] TNP Urine Protein TNP Urine Glucose (UA) TNP Urine Ketones TNP Urine Occult Blood TNP Urine Nitrate TNP Urine Bilirubin TNP Ur Bilirubin Confirm TNP Urine Urobilinogen TNP Ur Leukocyte Esterase TNP Vol Urine Centrifuged 10ml (spun) Urine Dip Bedside Urine Glucose 100 mg/dl Bedside Urine Bilirubin +++ 4 Bedside Urine Ketone ++ 40 Urine Specific [place] 1.030 Bedside Urine Occult Blood - Negative Bedside Urine pH 5.0 Bedside Urine Protein + 30 Bedside Urine Urobilinogen 3+ 8mg Bedside Urine Nitrite + Positive Bedside Urine Leukocytes +++ 500 Esterase MDM Narrative Medical decision making narrative: Patient is a 28-year-old female who is 11 weeks and 4 months who has not . She presents today for concern of increased urinary frequency and urgency since today. She endorses some nausea for an hour today which has since subsided. She is concerned for possible UTI. She states that she saw her rn gyn last week and has a follow up appointment at the end of the month. She denies any chronic conditions or any complications of her . She denies any vaginal discharge or bleeding or abdominal pain. Physical exam is reassuring with no evidence of CVA tenderness or abdominal tenderness. Microscopic shows evidence of bacteria as well as white blood cells. Patient took azo this morning and felt improvement in her symptoms. Multiple etiologies for patient's symptoms considered including, but not limited to: UTI, pyelonephritis, complication Labs reviewed and interpreted by myself: Microscopic shows bacteria and white blood cells which is consistent with UTI Imaging reviewed: No imaging needed Recommend patient increase fluid intake and start Augmentin antibiotic. We will send urine off for culture notify patient if changes to treatment are needed. I recommend that she follow up with her rn gyn to ensure her symptoms are improving. Discussed return precautions to include fever, body aches chills, abdominal pain or the concerning signs or symptoms. She verbalizes agreement. Findings and discharge diagnosis discussed with patient/family followed by verbalization of understanding Return precautions discussed with patient/family whom verbalize understanding of diagnosis and plan Discharge Plan Departure Patient Disposition: Home Clinical Impression: Urinary tract infection Instructions: DI for Urinary Tract Infection (UTI) Activity Restrictions/Additional Instructions: Thank you for coming in today for your care. You were diagnosed today with a UTI. Your urinalysis showed evidence of bacteria and white blood cells which we can treat with Augmentin. This should be safe your . I encourage you to increase your water intake and take the antibiotic. We will run a culture to notify you if any changes needed in your treatment. Please follow up with your rn gyn and notify them that you were seen in the emergency department. [facility] [place]. Please follow up in the emergency department if you should develop any fever, body aches, abdominal pain, shaking chills, bloody vaginal discharge or other concerning signs or symptoms. Prescriptions: New amoxicillin-pot clavulanate 875-125 mg tablet 1 tab PO BID 5 Days Qty: 10 0RF No Action prenat.vits,mayra,who-yusp-mhepx Tablet 1 tab PO DAILY acetaminophen 325 mg Tablet 650 mg PO Q6HR PRN (Reason: Pain, Mild (1-3)) Qty: 30 0RF docusate sodium 100 mg Capsule 100 mg PO DAILY Qty: 30 0RF ibuprofen 600 mg Tablet 600 mg PO Q6HR PRN (Reason: Pain, Mild (1-3)) Qty: 30 0RF Referrals: Queenie Gayle DO [Primary Care Provider] - Stand Alone Forms: Patient Portal/API
[2023-07-22 14:51] LABS: Bacteria Urine Many (>30); Culture Indicated Urine Specimen Cultured; Mucus Urine 2+ (Negative); RBC Urine 0-1/HPF (0-5/HPF); Squamous Epithelial Cell Urine 5-10 /HPF (0-5/HPF); WBC Urine 30-100/HPF (0-5/HPF)
== END 2023-07-22 15:10 | disposition home or self-care (01) ==
PROVIDERS: Emergency Provider Physician Assistant
DX: O23.43 Unspecified infection of urinary tract in pregnancy, third trimester (principal); Z3A.11 11 weeks gestation of pregnancy
CPT/HCPCS: 81001; 81003; 87086; 99281; 99283

== ENCOUNTER → 2023-08-14 14:19 | Outpatient (CLI) | payer OTHER, SELFPAY | PROVIDERS: Visit Provider Family Medicine | DX: O09.299 Supervision of pregnancy with other poor reproductive or obstetric history, unspecified trimester (principal) | CPT/HCPCS: 87086 ==

== ENCOUNTER → 2023-09-21 12:22 | Outpatient (CLI) | payer OTHER, SELFPAY ==
--- NOTE | 2023-09-21 12:22 | DI.US.S_ITS ---
PROCEDURE: US OB >= 14 WEEKS FETUS INDICATIONS: anatomy scan OUTSIDE/PRIOR DATING DATA: Last menstrual period (LMP): Unknown. LMP-based estimated date of delivery (JOSE): Not applicable. First dating scan (date and location): 06/11/23. Estimated date of delivery (JOSE) from first dating scan: 02/04/24. The calculations are made using the sonographic JOSE of 02/04/24. TECHNIQUE: Real-time scanning was performed of the fetus, with image documentation and biometric measurements. Endovaginal scanning: Not performed COMPARISON: [facility] OB <= 14 WEEKS FETUS, 06/11/2023, 14:53. [facility] OB >= 14 WEEKS FETUS, 10/20/2022, 10:46. FINDINGS: General: A single living intrauterine gestation is present. Presentation: Breech. Placenta: Placental position is posterior, to the right , without previa. Amniotic fluid index: 15.1 cm, normal range is 5-24 cm. Single deepest vertical pocket is 4.8 cm. heart rate: 137 beats per minute. Maternal cervical canal: Closed and 4.3 cm long. Normal lower limit is 2.5 cm. biometrics: Biparietal diameter: 4.7 cm, 20 weeks two days Head circumference: 17.4 cm, 19 weeks six days Abdominal circumference: 14.6 cm, 19 weeks six days Femur length: 3.5 cm, 21 weeks 0 days Clinically estimated gestational age: 20 weeks four days Composite gestational age from present scan: 20 weeks two days Estimated weight and percentile: 347 g, 32nd percentile Anatomic survey: Neuro: Ventricles are non-dilated at less than 10 mm. Cisterna magna is normal at 3-11 mm. Cerebellum is normal in size and morphology. Nuchal skin fold: Normal at less than 6 mm between 14-21 weeks gestational age. Face: Nasal bone, nose and lips, and facial profile were suboptimally seen due to position. Spine: No evidence for spina bifida. Heart: Four chambered heart is present. The outflow tracts were not well seen due to position. Diaphragm: Diaphragm is intact. Stomach: Left-sided stomach is present. Kidneys: No hydronephrosis. Normal is less than 5 mm in 2nd trimester, less than 7 mm in 3rd trimester. Cord: 3-vessel cord has orthotopic insertion. Bladder: Normal in size. Extremities: All 4 extremities identified. IMPRESSION: Single living intrauterine with symmetric and appropriate growth. Estimated weight at the 32nd percentile. Due to position, cardiac outflow tracts and facial features were not well seen. Short interval follow-up is recommended. Otherwise normal anatomy. Posterior placenta. Normal amniotic fluid volume. We strive to produce accurate, complete, and clear reports of imaging services. To assist us in improving patient care, this report was composed using standard report templates and voice recognition software. Therefore, it may contain abnormal punctuation, insertions and/or omissions. Occasional wrong-word or sound-alike substitutions may occur. Though we review the report and make efforts to correct it, we do recommend that the report be read carefully in proper context to recognize any text inaccuracies. Dictated by: Rosetta Land M.D. on 09/21/2023 at 15:41 Approved by: Rosetta Land M.D. on 09/21/2023 at 15:49
== END ==
PROVIDERS: Referring Provider Family Medicine; Visit Provider Family Medicine
DX: Z34.80 Encounter for supervision of other normal pregnancy, unspecified trimester (principal)
CPT/HCPCS: 76811

== ENCOUNTER → 2023-10-17 10:40 | Outpatient (CLI) | payer OTHER, SELFPAY ==
--- NOTE | 2023-10-17 10:41 | DI.US.S_ITS ---
PROCEDURE: US OB FOLLOW UP INDICATIONS: follow up, unable to see structures OUTSIDE/PRIOR DATING DATA: Last menstrual period (LMP): Unknown LMP-based estimated date of delivery (JOSE): N/A First dating scan (date and location): 06/11/2023 Estimated date of delivery (JOSE) from first dating scan: 02/04/2024 The calculations are made using the ultrasound JOSE of 02/04/2024. TECHNIQUE: Real-time scanning was performed of the fetus, with image documentation. Endovaginal scanning: Not performed. COMPARISON: [facility], US, US OB >= 14 WEEKS FETUS, 09/21/2023, 12:42. FINDINGS: General: A single living intrauterine gestation is present. Presentation: Vertex Placenta: Placental position is posterior right, without previa. Amniotic fluid index: 19.7 cm, normal range is 5-24 cm. Single deepest vertical pocket is 5.6 cm. heart rate: 160 beats per minute. Maternal cervical canal: 3.8 cm long. Normal lower limit is 2.5 cm. Clinically estimated gestational age: 24 weeks 2 days Other: facial profile, nose/lips, four-chamber heart view, and right and left ventricular outflow tracts appear normal. IMPRESSION: 1. Single live intrauterine at 24 weeks 2 days gestation. 2. face and heart appear normal. This completes the anatomic survey. Approved by: Juan C Mondragon M.D. on 10/17/2023 at 14:56
== END ==
LOC: US 10:41
PROVIDERS: Referring Provider Family Medicine; Visit Provider Family Medicine
DX: Z34.82 Encounter for supervision of other normal pregnancy, second trimester (principal); Z3A.24 24 weeks gestation of pregnancy
CPT/HCPCS: 76816

== ENCOUNTER → 2023-11-09 11:28 | Outpatient (CLI) | payer OTHER, SELFPAY ==
[2023-11-09 14:47] LABS: Add Manual Diff / Slide Review NO; Basophils Absolute Auto 0 /uL (0-100); Basophils Percent Auto 0.3 % (0-2); Eosinophils Absolute Auto 200 /uL (0-450); Eosinophils Percent Auto 2.1 % (2-4); Hematocrit 36.1 % (36-46); Hemoglobin 12.4 g/dL (12.0-16.0); Lymphocytes Absolute Auto 2200 /uL (1100-4500); Lymphocytes Percent Auto 22.2 % (25-40); Mean Corpuscular HGB Conc 34.3 % (30-36); Mean Corpuscular Hemoglobin 29.5 PG (26-34); Mean Corpuscular Volume 86.2 fL (80-100); Monocytes Absolute Auto 700 /uL (0-900); Monocytes Percent Auto 6.8 % (3-14); Neutrophils Absolute Auto 6700 /uL (1500-7000); Neutrophils Percent Auto 68.6 % (50-75); Platelet Count 247 X10^3/uL (150-400); Red Blood Cell Count 4.18 X10^6/uL (4.0-5.2); Red Cell Distribution Width 13.2 % (11.6-14.8); White Blood Cell Count 9.8 X10^3/uL (4.5-11.0)
[2023-11-09 15:08] LABS: GTT (PREG) 1 Hour PP 50gm Dose 152 mg/dL (76-139)
== END ==
PROVIDERS: Referring Provider Family Medicine; Visit Provider Family Medicine
DX: Z34.80 Encounter for supervision of other normal pregnancy, unspecified trimester (principal)
CPT/HCPCS: 82950; 85025; 86850

== ENCOUNTER → 2023-11-23 09:49 | Outpatient (CLI) | payer OTHER, SELFPAY ==
[2023-11-23 11:52] LABS: Glucose 1 Hour Gest 211 mg/dL (76-180)
[2023-11-23 11:53] LABS: Glucose Fasting Gestational 84 mg/dL (76-95)
[2023-11-23 13:11] LABS: Glucose Tol Interp,Gestational INTERPRETATION
[2023-11-23 13:27] LABS: Glucose 2 Hour Gest 153 mg/dL (76-155)
[2023-11-23 15:23] LABS: Glucose 3 Hour Gest 111 mg/dL (76-140)
== END ==
PROVIDERS: Referring Provider Family Medicine; Visit Provider Family Medicine
DX: O24.419 Gestational diabetes mellitus in pregnancy, unspecified control (principal)
CPT/HCPCS: 36415; 82951; 82952

== ENCOUNTER → 2024-01-14 10:41 | Outpatient (CLI) | payer OTHER, SELFPAY ==
[2024-01-15 07:36] LABS: Strep Grp B PCR NEG for Grp B Strep
== END ==
PROVIDERS: Visit Provider Family Medicine
DX: Z34.90 Encounter for supervision of normal pregnancy, unspecified, unspecified trimester (principal); Z3A.36 36 weeks gestation of pregnancy
CPT/HCPCS: 87653

== ENCOUNTER 2024-01-14 11:05 | Outpatient (CLI) | payer OTHER, SELFPAY ==
--- NOTE | 2024-01-14 11:25 | P.TNLD_ITS ---
Visit Information Visit Information Date of evaluation: 01/14/24 Primary OB Provider: Corina Portillo Comments/Additional reasons for admission: 28yo at 36w3d here for NST for GDMA2. [facility] Medical History (Updated 01/14/24 @ 10:45 by Corina Portillo MD) Preeclampsia Gestational diabetes Gestational hypertension Surgical History (Updated 07/13/22 @ 10:30 by Nicole Jaimes RN) [place] teeth extracted Family History (Updated 08/11/22 @ 14:40 by Corina Portillo MD) Grandfather Pancreatic cancer Diabetes mellitus Mother History of hysterectomy Endometrial cancer Social History marital status: unmarried,single number of children: 1 household members: children lives independently: Yes caregiver/support person: Yes [facility] pets and animals: No education level: high school occupational status: employed current occupational exposures/hazards: Yes (counseled ) special reece needs: No travel history: over 6 months ago seatbelt use: always helmet use: Yes water heater temp set < 120 deg: Yes working smoke detector in home: Yes fire extinguisher in home: Yes carbon monox detector in home: Yes firearms in home: Yes do you feel safe at home: Yes Smoking Status: Never smoker second hand exposure: No alcohol intake: former substance use type: does not use during the past year weight has: remained stable well-balanced diet: about half the time daily servings fruits/ve-4 caffeine: Yes (2 shots/day espresso) Type(s) of exercise: walking, bicycling and resistance training frequency: daily duration: 30-45 minutes/day Evaluation Evaluation Baseline heart rate: 155 Variability: Moderate (11-25) monitor accelerations: Present Monitor Decelerations: Absent Category of Tracing: Reactive Diagnosis, Plan/Disposition Final Diagnosis (1) Gestational diabetes: Status: Acute Plan/Disposition Plan: 28yo at 36w3d here for NST for GDMA2. NST reactive. Stable for d/c home. Continue testing. OB Disposition: home
== END 2024-01-14 11:50 | disposition home or self-care (01) ==
LOC: LABOR 11:35 → OB 01-16 09:42
PROVIDERS: Referring Provider Family Medicine; Visit Provider Family Medicine
DX: O24.419 Gestational diabetes mellitus in pregnancy, unspecified control (principal); Z3A.36 36 weeks gestation of pregnancy
CPT/HCPCS: 59025; G0378; G0379

== ENCOUNTER 2024-01-17 11:54 | Outpatient (CLI) | payer OTHER, SELFPAY ==
--- NOTE | 2024-01-17 12:40 | P.TNLD_ITS ---
Visit Information Visit Information Date of evaluation: 01/17/24 On-call OB Provider: Analisa Brown Reason for Evaluation: Yes non-stress test Vital Signs Vital Signs: reviewed in OBIX, within normal parameters PFSH Medical History (Updated 01/17/24 @ 12:41 by Analisa Brown DO) Preeclampsia Gestational diabetes Gestational hypertension Surgical History (Updated 07/13/22 @ 10:30 by Nicole Jaimes RN) [place] teeth extracted Family History (Updated 08/11/22 @ 14:40 by Corina Portillo MD) Grandfather Pancreatic cancer Diabetes mellitus Mother History of hysterectomy Endometrial cancer Social History marital status: unmarried,single number of children: 1 household members: children lives independently: Yes caregiver/support person: Yes [facility] pets and animals: No education level: high school occupational status: employed current occupational exposures/hazards: Yes (counseled ) special reece needs: No travel history: over 6 months ago seatbelt use: always helmet use: Yes water heater temp set < 120 deg: Yes working smoke detector in home: Yes fire extinguisher in home: Yes carbon monox detector in home: Yes firearms in home: Yes do you feel safe at home: Yes Smoking Status: Never smoker second hand exposure: No alcohol intake: former substance use type: does not use during the past year weight has: remained stable well-balanced diet: about half the time daily servings fruits/ve-4 caffeine: Yes (2 shots/day espresso) Type(s) of exercise: walking, bicycling and resistance training frequency: daily duration: 30-45 minutes/day Evaluation Evaluation Baseline heart rate: 155 Variability: Moderate (11-25) monitor accelerations: Present Monitor Decelerations: Absent Contraction Frequency (minutes): 0 Category of Tracing: Reactive Diagnosis, Plan/Disposition Final Diagnosis (1) GDM, class A2: Status: Acute Plan/Disposition Plan: Follow up in clinic as scheduled OB Disposition: home
== END 2024-01-17 12:53 | disposition home or self-care (01) ==
LOC: LABOR 12:32 → OB 01-22 07:24
PROVIDERS: Referring Provider Family Medicine; Visit Provider Family Medicine
DX: O24.414 Gestational diabetes mellitus in pregnancy, insulin controlled (principal); Z3A.37 37 weeks gestation of pregnancy; Z3A.36 36 weeks gestation of pregnancy; Z71.3 Dietary counseling and surveillance
CPT/HCPCS: 59025; 97802; G0378; G0379

== ENCOUNTER → 2024-01-17 11:56 | Outpatient (CLI) | payer OTHER, SELFPAY ==
--- NOTE | 2024-01-17 13:12 | DIAB.GDA ---
Initial Gestational Diabetes Assessment Name: Alicja Mckinney Date: 01/17/24 Time: 1-215p Dx: Gestational Diabetes Provider: Lindsey JOSE: 02/08/24 Weeks: 36 Alicja presents for initial visit. Late to DM education due to declining Dm ed referral per provider notes. Reports two sons at home. GDM with first child, 4 years ago, diet managed per report. Both sons born 7#. First son did have hypoglycemia after , treated with what sounds like dextrose IV, hospitalized x 1 week after . Preeclampsia with second . She is having a girl! Per OB notes, plans for 39 week delivery. Diet Recall: 730a: fast food breakfast sandwich, home coffee with sf creamer 1230p: deli sandwich from sandwich shop-- not warmed deli meat 230p: banana or handful of berries 530p: Hello Fresh meals: protein, veggie, 1c starch sn: nothing or sf pudding or popscicle water 20-40oz coffee 12oz diet coke 12oz Often forgets to drink water during the day. Anthropometrics: Ht: 63 Wt: 224# 01/14/24 Physical Activity: Tries to walk 20-30 mins intentional activity most days. Has stationary bike. Self-Monitoring Blood Glucose: Checks FBG and 1 hour pc. Forgot log book. Open to CGM. Reports starting NPH Sunday after provider visit 5u BID. Reports FBG of 102mg/dl this morning and 99 or 100mg/dl yesterday. Placed sample CGM. Will message OB provider. Diabetes Medications: 5u NPH BID Pertinent Labs: Screen 152 ; OGTT: 84, 211, 153, 111 Nutrition Rx: Carbohydrates: Meal: 45-60g lunch and dinner; 30g breakfast Snack: 15-30g Nutrition Diagnosis: Altered nutrition related lab value r/t GDM dx aeb recent OGTT Undesireable food choices r/t eating unheated deli meat regularly increasing risk of listeria aeb diet recall Inadequate fluid intake r/t forgetting to drink water during the day aeb pt report Intervention: This participant was very receptive. Provided appropriate educational handouts. Discussed the following topics: GDM pathophysiology and impact of hyperglycemia on mom and baby Risk for T2DM for mom and baby in the future Ways to reduce risk T2DM Plate Method, meal timing, carb counting, pairing macronutrients and spreading out CHO for better BG management Blood glucose goals (FBG: <95 and 1 hour <140 mg/dL); importance of checking 4x per day (FBG and pc) CGM Sample Reviewed CGM use and equipment Discussed when to check blood sugars using finger stick Reviewed high and low blood sugar signs/symptoms and treatment options Provided education for self-administration of CGM placement Educated patient on alarm settings Discussed when to replace equipment and disposal Impact of macronutrients on blood glucose Recommended servings for carbohydrates at meals and snacks Brainstormed appropriate meal plan based on her food preferences Rule of 15 for lows Medication management: titration based on FBG 1-2u q 2 days Role of physical activity and following provider guidelines for safety Goals: Add protein to afternoon snack Aim for 40-60oz water per day Check-in at lunch and dinner for water bottle amt Try stationary bike after higher BG meals Increase NPH by 1-2 u q 2 days if FBG >95mg/dl Follow-up: [facility]INE [facility]AT follow-up in one week. RD will message OB provider about CGM rx and NPH titration Lor Kerns RDN, PERLITA Certified Diabetes Care and Agency Development Manager T: [phone] F: [phone] [email or web address] Thank you for this referral
== END ==
PROVIDERS: Referring Provider Family Medicine
DX: O24.414 Gestational diabetes mellitus in pregnancy, insulin controlled (principal); Z3A.36 36 weeks gestation of pregnancy; Z71.3 Dietary counseling and surveillance
CPT/HCPCS: 97802

== ENCOUNTER 2024-01-22 10:38 | Outpatient (CLI) | payer OTHER, SELFPAY | END 2024-01-22 11:21 | disposition home or self-care (01) | LOC: OB 01-28 06:34 | PROVIDERS: Referring Provider Family Medicine; Visit Provider Family Medicine | DX: O24.414 Gestational diabetes mellitus in pregnancy, insulin controlled (principal); Z3A.37 37 weeks gestation of pregnancy | CPT/HCPCS: 59025; G0378; G0379 ==

== ENCOUNTER → 2024-01-24 09:32 | Outpatient (CLI) | payer OTHER, SELFPAY ==
--- NOTE | 2024-01-24 09:57 | DIAB.GDFU ---
Follow-up Gestational Diabetes Assessment Name: Alicja Mckinney Date: 01/24/24 Time: 10a-11a Dx: Gestational Diabetes Provider: Lindsey JOSE: 02/08/24 Weeks: 37-38 Alicja presents for follow-up visit. Plans for 39 week delivery. Has been wearing CGM sample. Increased NPH as discussed last visit. Still having some elevations after eating. Breakfast is the most consistent elevation, sometimes r/t 60g CHO breakfast. Also sometimes having elevations after trail mix, mostly in evening. States portion may be more in the evening. Has increased her water intake since last visit. Has US growth scan today. Today she states she worries about her sister in [place] with T2DM after . Has questions about resources for DM. Diet Recall: 730a: fast food breakfast sandwich or burrito, home coffee with sf creamer OR yogurt parfait 1230p: chicken nuggets 230p: trail mix with nuts and dried fruit 530p: thin crust pizza OR pasta dish with protein x 1.5 c sn: trail mix water 60oz coffee 12oz diet coke 12oz Anthropometrics: Ht: 63 Wt: 224# 01/14/24 Physical Activity: Tries to walk 20-30 mins intentional activity most days. Has stationary bike, but not using. States time is her barrier for exercise. After dropping kids off at care, she has been working on getting house ready for baby. Self-Monitoring Blood Glucose: Checks FBG and 1 hour pc. Brought log book and downloaded CGM results. Many meals just peaking over 140mg/dl in the 140-160mg/dl. Per log book more readings in goal and FBG all in goal since slight increase in NPH except this morning at 97mg/dl. CGM rx not in EMR today, but RD messaged provider workgroup for rx. Have received confirmation of placed rx since this visit. TIR: 0% very high 8% 140-250 mg/dl 90% 70-140 mg/dl 2% <70 mg/dl <1% <54 mg/dl av mg/dl 5.9% GMI variabilty 20.5% FB (increased by 1u NPH), 89, 85, 87, 75, 90, 97 (mg/dl) Diabetes Medications: 6u NPH PM 5u NPH AM Pertinent Labs: Screen 152 ; OGTT: 84, 211, 153, 111 Nutrition Rx: Carbohydrates: Meal: 45-60g lunch and dinner; 30g breakfast Snack: 15-30g Nutrition Diagnosis: Altered nutrition related lab value r/t GDM dx aeb recent OGTT Undesireable food choices r/t eating unheated deli meat regularly increasing risk of listeria aeb diet recall- improved Inadequate fluid intake r/t forgetting to drink water during the day aeb pt report- improved Excessive CHO intake r/t nutrition knowledge deficit aeb diet recall and pt report and elevated BG - new Physical inactivity r/t cleaning vs intentional activity after meals aeb pt report and elevated BG - new Intervention: This participant was very receptive. Provided appropriate educational handouts. Discussed the following topics: Recent blood sugar results and impact of food and hormones Review of macronutrient recommendations during Benefits, resources, and nutrition for recommendations for nutrition and physical activity recommendations for T2DM risk reduction OGTT at 6-12 weeks Checking blood sugars twice per week (goal: fasting <100 mg/dL and 2 hour pc <140 mg/dL) until 6 week check-up HgA1c q 1-3 years. Adding activity after breakfast Recs for CHO at first meal of the day DM resources and questions to ask insurance/provider in other state Goals: Add protein to afternoon snack- met Aim for 40-60oz water per day- met Check-in at lunch and dinner for water bottle amt- met Try stationary bike after higher BG meals- not met Increase NPH by 1-2 u q 2 days if FBG >95mg/dl- met Try 5-10 min bike after breakfast- new Try smaller portions of trail mix at night- new Add plain nuts to trail mix- new Follow-up: [facility] follow-up prn. Having slight elevations after meals pretty consistently. Adding additional NPH would likely result in hypoglycemia based on CGM results between meals. FBG are mostly in range. Today we focused on reducing carbs to recommended portions and adding activity to reduce those elevations. She agreed to this plan. Plans for delivery at 39 weeks, so this will be our last visit. Lor Kerns RDN, PERLITA Certified Diabetes Care and Township Clerk T: [phone] F: [phone] [email or web address] Thank you for this referral
== END ==
PROVIDERS: Referring Provider Family Medicine
DX: O24.414 Gestational diabetes mellitus in pregnancy, insulin controlled (principal); Z3A.37 37 weeks gestation of pregnancy
CPT/HCPCS: 97803

== ENCOUNTER → 2024-01-24 11:50 | Outpatient (CLI) | payer OTHER, SELFPAY ==
--- NOTE | 2024-01-24 11:50 | DI.US.S_ITS ---
PROCEDURE: US OB LIMITED INDICATIONS: GESTATIONAL DIABETES - GROWTH OUTSIDE/PRIOR DATING DATA: Last menstrual period (LMP): Unknown. LMP-based estimated date of delivery (JOSE): Undo known. First dating scan (date and location): 06/20/2023. Estimated date of delivery (JOSE) from first dating scan: 02/08/2024. The calculations are made using the ultrasound JOSE of 02/08/2024. TECHNIQUE: Real-time scanning was performed of the fetus, with image documentation and biometric measurements. COMPARISON: [facility], , OB FOLLOW UP, 10/17/2023, 10:53. FINDINGS: General: A single living intrauterine gestation is present. Presentation: Vertex. Placenta: Placental position is posterior , without previa. Amniotic fluid index: 7.3 cm, normal range is 5-24 cm. Single deepest vertical pocket is 3.0 cm. heart rate: 157 beats per minute. Maternal cervical canal: Not evaluated biometrics: Biparietal diameter: 9 cm 36 weeks 3 days Head circumference: 31.9 cm 36 weeks 0 days Abdominal circumference: 32.5 cm 36 weeks 3 days Femur length: 7.6 cm 39 weeks 0 days Clinically estimated gestational age: 37 weeks 6 days Composite gestational age from present scan: 37 weeks 0 days Estimated weight and percentile: 3097 g 39th percentile Other: Not applicable. IMPRESSION: Single live intrauterine with gestational age of 36 weeks 0 days. Appropriate interval growth. We strive to produce accurate, complete, and clear reports of imaging services. To assist us in improving patient care, this report was composed using standard report templates and voice recognition software. Therefore, it may contain abnormal punctuation, insertions and/or omissions. Occasional wrong-word or sound-alike substitutions may occur. Though we review the report and make efforts to correct it, we do recommend that the report be read carefully in proper context to recognize any text inaccuracies. Dictated by: Judie Ngo M.D. on 01/25/2024 at 12:06 Approved by: Judie Ngo M.D. on 01/25/2024 at 12:08
== END ==
LOC: US 11:50
PROVIDERS: Referring Provider Family Medicine; Visit Provider Family Medicine
DX: O24.414 Gestational diabetes mellitus in pregnancy, insulin controlled (principal); Z3A.36 36 weeks gestation of pregnancy; Z3A.37 37 weeks gestation of pregnancy
CPT/HCPCS: 76815; 97803

== ENCOUNTER 2024-01-25 11:36 | Outpatient (CLI) | payer OTHER, SELFPAY | END 2024-01-25 12:17 | disposition home or self-care (01) | LOC: LABOR 12:14 → OB 01-28 06:37 | PROVIDERS: Referring Provider Family Medicine; Visit Provider Family Medicine | DX: O24.419 Gestational diabetes mellitus in pregnancy, unspecified control (principal); Z3A.38 38 weeks gestation of pregnancy | CPT/HCPCS: 59025; G0378; G0379 ==

== ENCOUNTER 2024-02-05 19:55 | Inpatient (IN) | payer OTHER, SELFPAY ==
--- NOTE | 2024-02-05 20:15 | PM.OBHP.IH.1 ---
OB HPI Date/Time Date of admission: 02/05/24 Date Patient Seen: 02/05/24 Time Patient Seen: 20:15 History of Present Condition Chief complaint: L&D JOSE Calculator Estimated Delivery Date Method Current WG Current Estimate 02/08/24 Ultrasound #2 39w 5d Other Estimates 02/04/24 Ultrasound #1 40w 2d Estimated Gestational Age (weeks): 39w4d : 3 Para: 2 Narrative: 28yo at 39w5d who presented for IOL for GDMA2. No vaginal bleeding, LOF, contractions. She is feeling her baby move regularly. Pts complicated by GDM, initiated on insulin at 36 wks. She had reassuring testing and growth u/s. The pt was also on baby aspirin throughout her due to a hx of pre-eclampsia. care: good care, initiated at week # (6) and pounds weight gain (25) Dating criteria OB: based on 1st trimester US only Ultrasounds: normal 1st trimester US and normal mid trimester US Obstetrical complications: gestational diabetes Medical complications OB: none Indications Indication for induction OB: gestational diabetes Preadmission Labs Last OB Lab Results: Blood Type A Negative 02/05/24 20:39 Antibody Screen Positive 02/05/24 20:39 Hct 35.1 % (36-46) L 02/05/24 20:39 Hgb 11.9 g/dL (12.0-16.0) L 02/05/24 20:39 Hep Bs Antigen Negative s/c (NEGATIVE) 06/22/23 08:32 Hepatitis C Antibody Negative s/c (NEGATIVE) 06/22/23 08:32 Rubella Antibody 33.0 IU/mL (>15) 06/22/23 08:32 VZV IgG Antibody 1334 index (Immune >165) 06/22/23 08:32 Glucose 1 Hr 50 gm 152 mg/dL (76-139) H 11/09/23 11:43 Hemoglobin A1c 4.7 % (4.0-6.0) 06/22/23 08:32 Group B Strep (PCR) Neg for grp b strep 01/14/24 10:41 -: Urine: negative -: PAP smear: Normal External Labs -: Urine: negative Prior (ies) Past Pregnancies Del. Date GA/Weeks Labor Lgth Wt Sex Route Outcome Anesthesia Place Delv Breastfeed Preg Comp Name 05/16/19 39 12 7 lb 13 oz Male vaginal vacuum live - full term [facility] attempted induced hyper- gestational diabetes [place] 03/07/23 40 3 7 lb 1.5 oz Male vaginal live - full term epidural IH pre-eclampsia [place] Evaluation Evaluation Baseline heart rate: 150 Variability: Moderate (11-25) monitor accelerations: Present Monitor Decelerations: Absent Status: Category l Dilation (cm): 3.5 Effacement (%): 60 Dilation: 3-4 cm Effacement: 60-70% station: -2 Position of cervix: posterior Consistency: soft Aleman score: 7 [facility] Medical History (Updated 01/30/24 @ 08:24 by Corina Portillo MD) Preeclampsia Gestational diabetes Gestational hypertension Surgical History (Updated 07/13/22 @ 10:30 by Nicole Jaimes RN) [place] teeth extracted Family History (Updated 08/11/22 @ 14:40 by Corina Portillo MD) Grandfather Pancreatic cancer Diabetes mellitus Mother History of hysterectomy Endometrial cancer Social History marital status: unmarried,single number of children: 1 household members: children lives independently: Yes caregiver/support person: Yes housing: condominium pets and animals: No education level: high school occupational status: employed current occupational exposures/hazards: Yes (counseled ) special reece needs: No travel history: over 6 months ago seatbelt use: always helmet use: Yes water heater temp set < 120 deg: Yes working smoke detector in home: Yes fire extinguisher in home: Yes carbon monox detector in home: Yes firearms in home: Yes do you feel safe at home: Yes Smoking Status: Never smoker second hand exposure: No alcohol intake: former substance use type: does not use during the past year weight has: remained stable well-balanced diet: about half the time daily servings fruits/ve-4 caffeine: Yes (2 shots/day espresso) Type(s) of exercise: walking, bicycling and resistance training frequency: daily duration: 30-45 minutes/day Meds Home Medications and Allergies Home Medications Medication Instructions Recorded Confirmed Type prenat.vits,mayra,anc-erzl-uugmi 1 tab PO DAILY 07/13/22 02/05/24 History Glucose Meter #1 ea 11/27/23 02/05/24 Rx Glucose Test Strips #100 strips 12/25/23 02/05/24 Rx lancets 28 gauge (Acti-Tree #100 ea 12/25/23 02/05/24 Rx Lancets) pen needle, diabetic 31 gauge x #100 ea 01/14/24 02/05/24 Rx 3/16 (1st Tier Unifine Pentips Plus) Continuous Glucose Monitor #3 multiple units 01/24/24 02/05/24 Rx insulin NPH isoph U-100 human 100 6 unit SUBCUT BID 02/05/24 02/05/24 History unit/mL (3 mL) subcutaneous pen (Humulin N NPH U-100 Insulin KwikPen) Allergies Allergy/AdvReac Type Severity Reaction Status Date / Time No Known Drug Allergies Allergy Verified 02/05/24 21:58 OB Exam Resp Effort & Inspection: normal respiratory effort Auscultation: clear to auscultation bilaterally Cardio Rate: regular rate Rhythm: regular rhythm Heart Sounds: S1 normal, S2 normal and no murmurs GI Inspection: non-distended Palpation: Yes soft and No tender Presentation: vertex Objective Labs 02/05/24 20:39 02/06/24 00:59 Assessment and Plan Assessment and Plan Assessment and Plan narrative: 28yo at 39w5d who presented for IOL for GDMA2. GBS negative, Rh negative. Aleman score currently 7. - Cytotec PO q4hrs - Continuous monitoring, currently reassuring - Epidural for pain control when desired - ACHS blood glucose checks for now while eating. Glucose checks as per protocol when in labor - GBS negative, no prophylaxis indicated Time-Based Coding :: [TOTAL MINUTES] spent with patient and on the chart (including review of chart, obtaining history, exam, reviewing outside data, placing orders, documenting exam and treatment plan, and counseling patient) on [DATE].
[2024-02-05 21:09] LABS: Add Manual Diff / Slide Review NO; Basophils Absolute Auto 0 /uL (0-100); Basophils Percent Auto 0.2 % (0-2); Eosinophils Absolute Auto 100 /uL (0-450); Eosinophils Percent Auto 1.3 % (2-4); Hematocrit 35.1 % (36-46); Hemoglobin 11.9 g/dL (12.0-16.0); Lymphocytes Absolute Auto 2800 /uL (1100-4500); Lymphocytes Percent Auto 27.7 % (25-40); Mean Corpuscular HGB Conc 33.9 % (30-36); Mean Corpuscular Hemoglobin 26.9 PG (26-34); Mean Corpuscular Volume 79.2 fL (80-100); Monocytes Absolute Auto 700 /uL (0-900); Monocytes Percent Auto 6.7 % (3-14); Neutrophils Absolute Auto 6400 /uL (1500-7000); Neutrophils Percent Auto 64.1 % (50-75); Platelet Count 250 X10^3/uL (150-400); Red Blood Cell Count 4.44 X10^6/uL (4.0-5.2); Red Cell Distribution Width 14.6 % (11.6-14.8); White Blood Cell Count 9.9 X10^3/uL (4.5-11.0)
[2024-02-05] MEDS: ACETAMINOPHEN 325 MG TABLET 650 MG PO (21:31)
[2024-02-05] MEDS: miSOPROStoL 25 MCG TABLET 50 MCG PO (21:32)
[2024-02-05] MEDS: LACTATED RINGERS 1,000 ML 100 ML IV (23:33)
[2024-02-06 00:59] LABS: Creatinine Urine Random 272.95 mg/dL; Protein (Total) Urine Random 126 mg/dL (0-12); Protein Creatinine Ratio Urine 0.46 GRAM/24H
[2024-02-06 01:21] LABS: Alanine Aminotransferase 16 IU/L (<35); Albumin 3.6 g/dL (3.5-5.0); Alkaline Phosphatase 173 U/L (38-126); Aspartate Aminotransferase 22 IU/L (14-36); BUN Creatinine Ratio 20.3 (6-22); Bilirubin Total 0.6 mg/dL (0.2-1.3); Blood Urea Nitrogen 12 mg/dL (7-17); Calcium 9.4 mg/dL (8.4-10.2); Carbon Dioxide 16 mmol/L (22-32); Chloride 106 mmol/L (98-107); Estimated Glomerular Filt Rate > 60 mL/min (>60); Globulin 3.6 g/dL (1.7-4.1); Glucose 86 mg/dL (70-100); HEMOLYSIS < 15 (0-50); Potassium 3.8 mmol/L (3.4-5.1); Sodium 131 mmol/L (137-145); Total Protein 7.2 g/dL (6.3-8.2)
--- NOTE | 2024-02-06 04:16 | PM.AN.REGBLK ---
Regional Block Pre-procedure Procedure: Continuous Lumbar Epidural for L&D Attending OB provider: Corina Portillo PMH/ROS narrative: 28 y/o in active labor requesting MICHAEL. PMH GDM, obesity, and in prior preeclampsia and gestational HTN. PSH/Anesthesia history narrative: See preanesthesia evaluation form for further details. ASA Class: III Labs: Hct 35.1 % (36-46) L 02/05/24 20:39 Plt Count 250 X10^3/uL (150-400) 02/05/24 20:39 Medications: Current Medications Generic Name Dose Route Start Last Admin Trade Name Freq PRN Reason Stop Dose Admin Acetaminophen 650 mg 02/05/24 21:17 02/05/24 21:31 Acetaminophen 325 Mg Tablet PO 650 mg Q6H PRN Administration Fever/Mild Pain (1-3) Calcium Carbonate 1,000 mg 02/05/24 20:53 Calcium Carbonate 500 Mg Tab PO Q2HR PRN Dyspepsia Carboprost Tromethamine 250 mcg 02/05/24 20:53 Carboprost 250 Mcg/Ml Ampul IM Q90M PRN Bleeding Diphenhydramine HCl 25 mg 02/06/24 04:12 Diphenhydramine 50 Mg/Ml Vial IV Q10M PRN Pruritis Diphenhydramine HCl 25 mg 02/06/24 04:15 Diphenhydramine 50 Mg/Ml Vial IV 02/07/24 04:16 Q3HR PRN PRURITUS Ephedrine Sulfate 10 mg 02/06/24 04:12 Ephedrine 50 Mg/Ml Vial IV Q5M PRN Blood pressure decrease more than 20% of baseline. Fentanyl 50 mcg 02/05/24 20:53 Fentanyl 100 Mcg/2 Ml Inj IV Q1H PRN Pain, Moderate (4-6) Lactated Ringer's 1,000 mls @ 100 mls/hr 02/05/24 21:00 02/05/24 23:33 Lactated Ringers IV 02/06/24 06:59 100 mls/hr CONT VERONICA Administration Oxytocin/Lactated Ringer's 30 unit in 500 mls @ 200 mls/hr 02/05/24 20:53 Oxytocin Premix IV CONT PRN Bleeding Protocol Oxytocin/Lactated Ringer's 30 unit in 500 mls @ 2 mls/hr 02/05/24 21:00 Oxytocin Premix IV TITRATE VERONICA Protocol 2 MILLIUNIT/MIN Tranexamic Acid 1,000 mg/ 100 mls @ 600 mls/hr 02/05/24 20:53 Sodium Chloride IV NOW PRN Bleeding FENT 2MCG/ML BUPIV 0.125% EPI 200 mcg in 100 mls @ 8 mls/hr 02/06/24 04:04 Fentanyl/Bupiv/Ns 2mcg/Ml - 0.125% EPIDURAL CONT VERONICA Lidocaine HCl 20 ml 02/05/24 20:53 Lidocaine 1% 20 Ml INJ INTRA-OP PRN Post Delivery Methylergonovine Maleate 0.2 mg 02/05/24 20:53 Methylergonovine 0.2 Mg Tablet PO Q6HR PRN Heavy Bleeding Methylergonovine Maleate 0.2 mg 02/05/24 20:53 Methylergonovine 0.2 Mg/Ml Vial IM NOW PRN Bleeding Mineral Oil 30 ml 02/05/24 20:53 Mineral Oil 30 Ml Udc TOP PRN PRN Version Misoprostol 800 mcg 02/05/24 20:53 Misoprostol 200 Mcg Tablet SC NOW PRN Bleeding Misoprostol 50 mcg 02/05/24 20:53 02/05/24 21:32 Misoprostol 25 Mcg Tablet PO 50 mcg Q4H PRN Administration cervical ripening Misoprostol 400 mcg 02/05/24 20:53 Misoprostol 200 Mcg Tablet SL NOW PRN Bleeding Naloxone HCl 0.2 mg 02/05/24 20:53 Naloxone 0.4 Mg/Ml Vial IV Q2MIN PRN Opiate Reversal Naloxone HCl 0.4 mg 02/06/24 04:15 Naloxone 0.4 Mg/Ml Vial IV Q2MIN PRN Opiate Reversal Ondansetron HCl 4 mg 02/05/24 20:53 Ondansetron 4 Mg/2 Ml Inj IV Q4HR PRN Nausea And Vomiting Ondansetron HCl 4 mg 02/06/24 04:15 Ondansetron 4 Mg/2 Ml Inj IV 02/07/24 04:16 Q6HR PRN Nausea Oxytocin 10 unit 02/05/24 20:53 Oxytocin 10 Unit/Ml Vial IM NOW PRN Bleeding Allergies: Allergies Allergy/AdvReac Type Severity Reaction Status Date / Time No Known Drug Allergies Allergy Verified 02/05/24 21:58 Procedure Insertion date: 02/06/24 Insertion time: 03:53 Prep/Local: 1% lidocaine (5mL (CHG to back for skin prep)) Interspace: L4/5 Patient position: sitting Needle: 18 gauge Hustead ((27g Pencan through Hustead for CSE - 1mL 0.25% MPF bupivacaine intrathecal)) Loss of resistance with: saline EVELYN at (cm): 7 ((6.5 at steep angle, clear EVELYN)) Catheter placed at SKIN (cm): 12 Catheter in SPACE (cm): 5 Sensory level: T10 Insertion: No CSF, No Blood, Yes Paresthesia with insertion, No Paresthesia with injection and No Test dose reaction Initial Medications TEST DOSE time: 03:54 TEST DOSE: 1.5% lidocaine with epinephrine 1:200k (mL): 3 BOLUS DOSE time: 03:54 Infusion INFUSION: 0.125% bupivacaine and with fentanyl 2 mcg/mL Initial rate (mL/hr): 8 Post-procedure Anesthesia date START: 02/06/24 Anesthesia time START: 03:48 Anesthesia date END: 02/06/24 Anesthesia time END: 05:35 Post-procedure Anesthesia Assessment: Yes CV function: HR/BP stable, Yes Resp function: RR/sat/airway adequate, Yes Post-op hydration adequate, Yes Pain control adequate, Yes Nausea & vomiting absent, Yes Temperature > 36 C and Yes Mental status appropriate
--- NOTE | 2024-02-06 05:53 | PM.OBPRVD ---
Events: Gestational Diabetes and Pre-Eclampsia Labor & Delivery Delivery date: 02/06/24 Cervical ripening method: per misoprostal protocol Induction method: none Delivery augmentation: rupture of membranes Delivery monitor: external FHT and external uterine Route of delivery: L&D Laceration Description: None Quantitative Blood Loss: 200 Anesthesia Type: Epidural Complications: None Narrative: PROCEDURE: at 39w4d presented for IOL for GDMA2 and was admitted to Labor and Delivery. She received cytotec for induction. The pt was noted to have elevated BP to the 140s, and labs completed showed elevated pr/cr, and the pt was diagnosed with pre-eclampsia without severe features. The patient progressed through the 1st stage over 4 hours. ROM occured at 5:22 with clear fluid. Pain was controlled with an epidural. The patient progressed through the 2nd stage over 7 minutes and delivered a viable female infant with APGARs 8/9 at 5:35 via without complications. The cord was cut and clamped after it stopped pulsating. The placenta delivered with gentle cord traction, and appeared complete. The perineum and vagina were inspected with small 2nd degree laceration repaired with 3-O Chromic. Needle and sponge counts were correct.? The vagina was inspected and no items were left in situ. Patient was doing well with her , step-mother, and [id number] at bedside. PREPROCEDURE DIAGNOSIS: Intrauterine at 39w5d GBS negative RH negative Pre-eclampsia without severe features GDMA2 POSTPROCEDURE DIAGNOSIS: Intrauterine at 39w5d, delivered Same as preprocedure Baby 1: gender: Female Presentation: vertex Position: Right Occiput Anterior Placenta delivery description: Spontaneous Cord Vessel Description: 3 Vessels and Nuchal Cord score (1 min): 8 score (5 min): 9 weight: 6 lb 10.175 oz Plan for aftercare: Routine care
[2024-02-06] MEDS: DERMOPLAST SPRAY 20% 60 ML 1 SPRAY TOP (08:15)
[2024-02-06] MEDS: IBUPROFEN 600 MG TABLET PO ×3 (08:15→21:33)
[2024-02-06] MEDS: WITCH HAZEL/GLYCERIN PADS 1 EACH TOP (08:15)
[2024-02-06] MEDS: FERROUS SULFATE 325 MG TABLET PO (15:32)
[2024-02-06] MEDS: PRENATAL VIT,CALC/IRON/FOLIC 1 TABLET 1 TAB PO (15:32)
[2024-02-06] MEDS: DOCUSATE 100 MG CAPSULE PO (15:32)
[2024-02-06] MEDS: LANOLIN OINT 7 GM 1 APPLIC TOP (15:33)
[2024-02-07] MEDS: IBUPROFEN 600 MG TABLET PO ×2 (05:25→13:12)
[2024-02-07] MEDS: FERROUS SULFATE 325 MG TABLET PO (08:17)
[2024-02-07] MEDS: DOCUSATE 100 MG CAPSULE PO (08:17)
[2024-02-07] MEDS: PRENATAL VIT,CALC/IRON/FOLIC 1 TABLET 1 TAB PO (08:17)
--- NOTE | 2024-02-07 11:34 | PM.OBDS.1 ---
Discharge Providers Provider Date of admission: 02/05/24 19:55 Discharge Date: 02/07/24 Primary care physician: Krishna DAMICO Provider Consults: 02/07/24 05:52 Consult to Returned Goods Inspector Routine Comment: Discharge provider: Corina Portillo MD Summary Hospital Course Date Patient Seen: 02/07/24 Time Patient Seen: 11:34 Diagnoses: Intrauterine at 39w5d GBS negative RH negative Pre-eclampsia without severe features GDMA2 Hospital Course: The pt presented for induction for GDMA2. She received one dose of cytotec and progressed into active labor. In the early stages of labor she had multiple elevated BPs and based on labs was diagnosed with pre-eclampsia without severe features. She received an epidural for pain control. When she was fully dilated AROM was performed with clear fluid present. The pt had an uncomplicated of a viable baby girl. A small 2nd degree perineal laceration was repaired. , there were no complications. At the time of discharge she was voiding, ambulating, and passing flatus without difficulty. Her lochia was decreasing appropriately. Her pain was well controlled. She was via pumping and formula supplementing as well. She will f/u in 6 weeks for check. Peripartum Data Delivery Method: Natural Vaginal Laceration Description: Perineal - 2nd Degree Episiotomy description: None Procedures: Spontaneous vaginal delivery complications: none 1: Gender: Female Disposition of : home Time Spent with Patient Time attestation: Total time spent providing and/or coordinating discharge services: Objective Labs 02/05/24 20:39 02/06/24 00:59 Exam Narrative Exam Narrative: Gen: NAD, sitting comfortably in bed, appears well CV: RRR, no murmurs Resp: clear to auscultation bilaterally Abd: soft, appropriately tender, fundus firm and below the umbilicus, nondistended Ext: no edema Discharge Plan Discharge Plan Patient Disposition: Home Discharge orders & Medications Prescriptions: New ferrous sulfate 325 mg (65 mg iron) Tablet 325 mg PO DAILY Qty: 30 0RF docusate sodium 100 mg Capsule 100 mg PO DAILY Qty: 30 0RF Continued prenat.vits,mayra,cug-lqsi-ghvhn Tablet 1 tab PO DAILY Discontinued (DME) Glucose Meter See Rx Instructions .ROUTE .MEDSUPPLY Qty: 1 0RF Rx Instructions: As directed (DME) Glucose Test Strips See Rx Instructions .ROUTE .MEDSUPPLY Qty: 100 3RF Rx Instructions: To test glucose three times daily (DME) lancets [Acti-Tree Lancets] 28 gauge misc See Rx Instructions .Route Qty: 100 0RF Rx Instructions: As directed to test glucose three times daily (DME) pen needle, diabetic [1st Tier Unifine Pentips Plus] 31 gauge x 3/16 needle See Rx Instructions .Route Qty: 100 0RF Rx Instructions: As directed (DME) Continuous Glucose Monitor sensors See Rx Instructions .ROUTE .MEDSUPPLY Qty: 3 3RF Rx Instructions: Dexcom 7 sensors, change out every 10 days Humulin N NPH Insulin KwikPen 100 unit/mL (3 mL) insulin pen 6 unit SUBCUT BID Follow up/Referrals: Corina Portillo MD [Physician] - (6 week Appt w/ Dr. Portillo: March 21 @ 11:30am) Diet/Activity/Treatments Diet: Diet as Tolerated and Regular Skin/Wound/Dressing Care Report to your healthcare provider any signs of infection, such as:: chills, fever, increased pain and unusual drainage Visit Report/Discharge Packet Instructions: DI for Labor and Delivery, Vaginal Stand Alone Forms: Discharge: Care, Patient Portal/API, Stroke Signs & Symptoms Discharge Data Primary Care Provider: ProviderKrishna Discharges patient from system. Discharge Date/Time: 02/07/24 13:30
== END 2024-02-07 13:30 | disposition home or self-care (01) | DRG 807 ==
PROVIDERS: Admitting Provider Family Medicine; Referring Provider Family Medicine; Visit Provider Family Medicine
DX: O24.424 Gestational diabetes mellitus in childbirth, insulin controlled (principal); Z37.0 Single live birth; Z3A.39 39 weeks gestation of pregnancy; O70.1 Second degree perineal laceration during delivery; O14.04 Mild to moderate pre-eclampsia, complicating childbirth
CPT/HCPCS: 36415; 59050; 59200; 80053; 82570; 84156; 85025; 86850; 86870; 86900; 86901; G0379

== ENCOUNTER → 2024-04-07 10:09 | Outpatient (CLI) | payer OTHER, SELFPAY ==
[2024-04-07 10:47] LABS: Glucose Fasting 117 mg/dL (70-100)
[2024-04-07 12:25] LABS: Glucose 1 Hour 117 mg/dL (70-170)
[2024-04-07 12:33] LABS: Glucose Tol Interpretation INTERPRETATION
[2024-04-07 13:01] LABS: Glucose 2 Hour 97 mg/dL (70-140)
== END ==
PROVIDERS: Referring Provider Family Medicine; Visit Provider Family Medicine
DX: O24.419 Gestational diabetes mellitus in pregnancy, unspecified control (principal)
CPT/HCPCS: 82951; 82952